=== PATIENT | male | born 1975 | race American Indian/Alaskan Native ===

== ENCOUNTER 2017-06-21 02:25 | Emergency (ER) | payer SELFPAY ==
--- NOTE | 2017-06-21 04:13 | XRay Report ---
FINAL REPORT PROCEDURE: XR HAND 2V LT TECHNIQUE: LEFT hand radiographs, AP, lateral, and oblique views. CPT 32932-IE HISTORY: left hand pain/injury COMPARISON: No prior studies are available for comparison. FINDINGS: Fracture (s) and/or Dislocation(s): None . Alignment: Normal . Joint space(s): Normal . Soft tissues: Normal . Bone mineralization: Normal . Foreign bodies: None . IMPRESSION: Normal Examination .
--- NOTE | 2017-06-21 07:35 | Emergency Department Report ---
Upper Extremity - HPI Chief Complaint: Extremity Injury, Upper Stated Complaint: LEFT HAND PAIN Time Seen by Provider: 06/21/17 07:23 Upper Extremity: Left Hand Occurred When: >5 Days (3 weeks) Mechanism: Hit with Object Severity: moderate Symptoms: Yes Pain with Movement, Yes Swelling, No Deformity, No Limited Range of Movement, No Numbness, No Weakness, No Bruising/Ecchymosis, No Laceration or Abrasion Other History: 42-year-old male past medical history none presents with complaint of 3 weeks of persistent pain and swelling of left palm. Patient is awake alert and oriented 3. Denies fevers chills. States that 3 weeks ago while at work a heavy box hit his right palm. States he had an x-ray done at another medical facility which was negative. States that he has had persistent swelling which may be slightly worse over the last week and pain in his left palm extending to his fingers. Patient denies any other injuries. Patient is able to range fingers without significant difficulty but it is uncomfortable for him. ED Review of Systems ROS: Stated complaint: LEFT HAND PAIN Other details as noted in HPI Constitutional: denies: chills, fever Eyes: denies: eye pain, eye discharge, vision change ENT: denies: ear pain, throat pain Respiratory: denies: cough, shortness of breath, wheezing Cardiovascular: denies: chest pain, palpitations Endocrine: no symptoms reported Gastrointestinal: denies: abdominal pain, nausea, diarrhea Genitourinary: denies: urgency, dysuria Musculoskeletal: as per HPI, arthralgia, other (left palm pain). denies: back pain, joint swelling Skin: denies: rash, lesions Neurological: denies: headache, weakness, paresthesias Psychiatric: denies: anxiety, depression Hematological/Lymphatic: denies: easy bleeding, easy bruising ED Past Medical Hx - Past Medical History Previous Medical History?: No - Surgical History Past Surgical History?: No - Social History Smoking Status: Never Smoker Substance Use Type: None - Medications Home Medications: Home Medications Medication Instructions Recorded Confirmed Last Taken Type Ibuprofen [Motrin 800 MG tab] 800 mg PO TID PRN #30 tablet 07/15/14 Unknown Rx Penicillin Vk [Veetids TAB] 500 mg PO QID #40 tablet 07/15/14 Unknown Rx traMADol [Ultram 50 MG tab] 50 mg PO Q6HR PRN #20 tablet 07/15/14 Unknown Rx Acetaminophen/Codeine [Tylenol 1 tab PO Q6H PRN #4 tab 06/21/17 Unknown Rx /Codeine # 3 tab] Ibuprofen [Motrin] 800 mg PO Q8HR PRN #15 tablet 06/21/17 Unknown Rx Upper Extremity Exam - Exam General: Vital signs noted. No distress. Alert and acting appropriately. Head and Torso: No HEENT Abnormality, No Neck Tenderness, No Chest/Lungs Abnormality, No Abdominal Tenderness, No Back Tenderness Shoulder Exam: Yes Normal Range of Motion in Shoulder, No Shoulder Tenderness, No Clavicle Tenderness, No Shoulder Deformity, No AC Joint Tenderness Arm Exam: No Arm/Humerus Tenderness, No Arm Deformity Elbow: No Elbow Tenderness, No Normal Range of Motion in Elbow, No Elbow Deformity Forearm: No Forearm Tenderness, No Forearm Deformity, No Pain with Pronation, No Pain with Supination Wrist: Yes Normal ROM in Wrist (range of motion left hand and wrist clinically intact on exam), No Wrist Tenderness, No Wrist Deformity, No Snuffbox Tenderness (distal sensation all fingers clinically intact snuffbox tenderness on exam), No Pain with Axial Thumb Compression Hand: Yes Normal ROM in Digit(s) (range of motion all fingers left hand clinically intact), No Hand Tenderness (tenderness mid palm left hand with associated swelling), No Hand Deformity, No Digit Tenderness, No Digit(s) Deformity, No Tendon Dysfunction (flexion and extension of all fingers clinically intact) CMS Exam: Yes Normal Distal Pulses (distal capillary refill intact to all 5 fingers and distal radial brachial and ulnar pulses strong to palpation), Yes Normal Capillary Refill, Yes Normal Distal Sensation, No Broken Skin ED Course Vital Signs 06/21/17 06/21/17 02:43 03:05 Temperature 98.8 F 98.8 F Pulse Rate 99 H 98 H Respiratory 18 17 Rate Blood Pressure 177/100 177/100 O2 Sat by Pulse 96 99 Oximetry ED Medical Decision Making - Lab Data Result diagrams: 06/21/17 07:49 06/21/17 07:49 - Medical Decision Making A/P: Left hand pain, possible inflammatory versus infectious tenosynovitis 1-I discussed with the patient that I am clinically concerned for possible inflammatory versus infectious tenosynovitis and/or tendon injury of his left hand. X-rays unremarkable. Blood work which shows slight hyperglycemia. I informed patient of this. I discussed this case with Dr. Del Castillo my ED attending. 2-I discussed case with on-call orthopedic surgeon Dr. Adamson. As patient does not have leukocytosis or fever and has no visible erythema on clinical exam with good neurovascular exam of left hand and no palpable heat it is extremely unlikely as per Dr. Adamson that this is infectious tenosynovitis of the left hand. More likely inflammatory. As per Dr. Adamson patient can follow-up in clinic this week. I provided him with follow-up information for primary care and orthopedics. I will cover patient empirically with analgesics and antibiotics. Patient provided with a left wrist volar Velcro splint 3-I informed patient that he has slightly elevated blood glucose. Patient does not have significant anion gap. I advised him to remain well-hydrated and follow-up with primary care Critical care attestation.: If time is entered above; I have spent that time in minutes in the direct care of this critically ill patient, excluding procedure time. ED Disposition Clinical Impression: Left hand pain Disposition: TO HOME OR SELFCARE Is pt being admited?: No Does the pt Need Aspirin: No Condition: Stable Instructions: Tenosynovitis (ED), Hyperglycemia, Non-Diabetic (ED) Prescriptions: Acetaminophen/Codeine [Tylenol /Codeine # 3 tab] 1 tab PO Q6H PRN #4 tab PRN Reason: Pain Ibuprofen [Motrin] 800 mg PO Q8HR PRN #15 tablet PRN Reason: Pain Referrals: FRACISCO ADAMSON MD [Staff Physician] - 3-5 Days [facility] [Provider Group] - 3-5 Days Forms: Work/School Release Form(ED) Time of Disposition: 09:18
[2017-06-21 07:59] LABS: Basophils % (Auto) 0.7 % (0.0-1.8); Eosinophils # (Auto) 0.1 K/mm3 (0.0-0.4); Eosinophils % (Auto) 2.2 % (0.0-4.3); Hematocrit 42.6 % (35.5-45.6); Lymphocytes # (Auto) 1.7 K/mm3 (1.2-5.4); Lymphocytes % (Auto) 31.6 % (13.4-35.0); Mean Corpuscular HGB Conc 33 % (32-34); Mean Corpuscular Hemoglobin 29 pg (28-32); Mean Corpuscular Volume 88 fl (84-94); Monocytes # (Auto) 0.4 K/mm3 (0.0-0.8); Monocytes % (Auto) 8.1 % (0.0-7.3); Platelet Count 331 K/mm3 (140-440); Red Blood Count 4.86 M/mm3 (3.65-5.03); Red Cell Distribution Width 13.2 % (13.2-15.2)
[2017-06-21 08:42] LABS: BUN/Creatinine Ratio 17; Blood Urea Nitrogen 12 mg/dL (9-20); Calcium 9.3 mg/dL (8.4-10.2); Hemolysis Index 24
[2017-06-21 09:08] VITALS: BP 140/90
== END 2017-06-21 09:50 | disposition home or self-care (01) ==
LOC: ED 02:25
DX: M79.642 Pain in left hand (principal)
CPT/HCPCS: 36415; 80048; 82550; 85025; 99283

== ENCOUNTER 2017-10-20 00:32 | Emergency (ER) | payer OTHER ==
[2017-10-20] MEDS ORDERED: TORADOL IM ONE (06:39)
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
[2017-10-20 07:53] VITALS: BP 150/90
== END 2017-10-20 07:52 | disposition home or self-care (01) ==
LOC: ED 00:32
DX: S39.012A Strain of muscle, fascia and tendon of lower back, initial encounter (principal); V89.2XXA Person injured in unspecified motor-vehicle accident, traffic, initial encounter; Y93.89 Activity, other specified; Y92.488 Other paved roadways as the place of occurrence of the external cause; Y99.8 Other external cause status
CPT/HCPCS: 96372; 99282; J1885

== ENCOUNTER 2018-10-23 02:08 | Emergency (ER) | payer SELFPAY ==
[2018-10-23 02:28] VITALS: BP 186/108
[2018-10-23] MEDS ORDERED: DECADRON IM ONE (03:09)
[2018-10-23] MEDS ORDERED: TORADOL IM ONE (03:09)
--- NOTE | 2018-10-23 03:18 | Emergency Department Report ---
ED Back Pain/Injury HPI - General Chief Complaint: Back Pain/Injury Stated Complaint: BURNING IN THIGH/BACK PAIN Time Seen by Provider: 10/23/18 03:09 Source: patient Limitations: No Limitations - History of Present Illness Initial Comments: pt is a 43 y/o aam who presents low back pain after lifting boxes at work pt described as 5/10 sharp radiating to right thigh, pain is exacerbated by movement bending and twisting pain is relieved by rest and position there is no numbness no tingling no loss or decrease in bowel or bladder function Complaint: back pain, back injury Onset/Timin -: days(s) Similar Symptoms Previously: Yes Place: work Radiation: right leg Severity scale (0 -10): 5 Quality: burning, sharp Consistency: constant Improves With: other (rest ) Worsens With: movement, sitting upright Context: while lifting, turning/twisting, bending Associated Symptoms: denies: difficulty urinating, incontinence, constipation, abdominal pain - Related Data Previous Rx's Medication Instructions Recorded Last Taken Type Ibuprofen [Motrin 800 MG tab] 800 mg PO TID PRN #30 tablet 07/15/14 Unknown Rx Penicillin Vk [Veetids TAB] 500 mg PO QID #40 tablet 07/15/14 Unknown Rx traMADol [Ultram 50 MG tab] 50 mg PO Q6HR PRN #20 tablet 07/15/14 Unknown Rx Acetaminophen/Codeine [Tylenol 1 tab PO Q6H PRN #4 tab 06/21/17 Unknown Rx /Codeine # 3 tab] Ibuprofen [Motrin] 800 mg PO Q8HR PRN #15 tablet 06/21/17 Unknown Rx Cyclobenzaprine [Flexeril] 10 mg PO BID PRN #20 tablet 10/20/17 Unknown Rx Menthol/Camphor [[place] 18 gm TP TID PRN #1 tube 10/20/17 Unknown Rx Ointment] Naproxen [Naprosyn] 500 mg PO BID PRN #30 tablet 10/20/17 Unknown Rx Cyclobenzaprine [Flexeril] 10 mg PO TID PRN #30 tablet 10/23/18 Unknown Rx Menthol/Camphor [[place] 1 applicatio TP QID PRN #1 tube 10/23/18 Unknown Rx Ointment] Naproxen [Naprosyn TAB] 500 mg PO BID PRN #30 tablet 10/23/18 Unknown Rx Allergies Allergy/AdvReac Type Severity Reaction Status Date / Time No Known Allergies Allergy Verified 10/20/17 01:17 ED Review of Systems ROS: Stated complaint: BURNING IN THIGH/BACK PAIN Other details as noted in HPI Constitutional: denies: chills, fever Eyes: denies: eye pain, eye discharge, vision change ENT: denies: ear pain, throat pain Respiratory: denies: cough, shortness of breath, wheezing Cardiovascular: denies: chest pain, palpitations Endocrine: no symptoms reported Gastrointestinal: denies: abdominal pain, nausea, diarrhea Genitourinary: other. denies: urgency, dysuria, frequency, hematuria Musculoskeletal: back pain. denies: joint swelling, arthralgia Skin: denies: rash, lesions Neurological: denies: headache, weakness, paresthesias, vertigo Psychiatric: denies: anxiety, depression Hematological/Lymphatic: denies: easy bleeding, easy bruising ED Past Medical Hx - Past Medical History Previous Medical History?: Yes Hx Hypertension: Yes (not taking meds) - Surgical History Past Surgical History?: No - Social History Smoking Status: Never Smoker - Medications Home Medications: Home Medications Medication Instructions Recorded Confirmed Last Taken Type Ibuprofen [Motrin 800 MG tab] 800 mg PO TID PRN #30 tablet 07/15/14 Unknown Rx Penicillin Vk [Veetids TAB] 500 mg PO QID #40 tablet 07/15/14 Unknown Rx traMADol [Ultram 50 MG tab] 50 mg PO Q6HR PRN #20 tablet 07/15/14 Unknown Rx Acetaminophen/Codeine [Tylenol 1 tab PO Q6H PRN #4 tab 06/21/17 Unknown Rx /Codeine # 3 tab] Ibuprofen [Motrin] 800 mg PO Q8HR PRN #15 tablet 06/21/17 Unknown Rx Cyclobenzaprine [Flexeril] 10 mg PO BID PRN #20 tablet 10/20/17 Unknown Rx Menthol/Camphor [[place] 18 gm TP TID PRN #1 tube 10/20/17 Unknown Rx Ointment] Naproxen [Naprosyn] 500 mg PO BID PRN #30 tablet 10/20/17 Unknown Rx Cyclobenzaprine [Flexeril] 10 mg PO TID PRN #30 tablet 10/23/18 Unknown Rx Menthol/Camphor [[place] 1 applicatio TP QID PRN #1 tube 10/23/18 Unknown Rx Ointment] Naproxen [Naprosyn TAB] 500 mg PO BID PRN #30 tablet 10/23/18 Unknown Rx ED Physical Exam - General Limitations: No Limitations General appearance: alert, in no apparent distress - Head Head exam: Present: atraumatic, normocephalic - Eye Eye exam: Present: normal appearance, EOMI. Absent: PERRL, conjunctival injection, nystagmus Pupils: Present: normal accommodation - ENT ENT exam: Present: mucous membranes moist - Neck Neck exam: Present: normal inspection, full ROM. Absent: tenderness, meningismus, lymphadenopathy, thyromegaly - Expanded Neck Exam Expanded Neck exam: Absent: tenderness, midline deformity, anterior neck swelling, thyroid mass, carotid bruit, tracheal deviation - Respiratory Respiratory exam: Present: normal lung sounds bilaterally. Absent: respiratory distress, wheezes, stridor, chest wall tenderness - Cardiovascular Cardiovascular Exam: Present: regular rate, normal rhythm, normal heart sounds. Absent: systolic murmur, diastolic murmur, rubs, gallop - GI/Abdominal GI/Abdominal exam: Present: soft, normal bowel sounds. Absent: distended, tenderness, guarding, rebound, rigid, bruit, hernia - Rectal Rectal exam: Present: deferred - Extremities Exam Extremities exam: Present: normal inspection, full ROM, normal capillary refill. Absent: tenderness, pedal edema, joint swelling, calf tenderness - Back Exam Back exam: Present: full ROM, tenderness (right low back muscle pain no posterior vertebral point tenderness mild paraspinus muscle tenderness to deep palpation), muscle spasm, paraspinal tenderness. Absent: CVA tenderness (R), CVA tenderness (L), vertebral tenderness, rash noted - Expanded Back Exam Expanded Back exam: Absent: saddle anesthesia Back exam: Positive Straight Leg Raise: Right, Negative Straight Leg Raising: Left - Neurological Exam Neurological exam: Present: alert, oriented X3, CN II-XII intact, normal gait, reflexes normal. Absent: motor sensory deficit - Expanded Neurological Exam Expanded Patient oriented to: Present: person, place, time Speech: Present: fluid speech Cranial nerves: EOM's Intact: Normal, Gag Reflex: Normal, Tongue Deviation: Normal, Nystagmus: Normal, Facial Sensation: Normal Cerebellar function: Finger to Nose: Normal, Heel to Thao: Normal, Romberg: Normal Upper motor neuron: Bronson Neglect: Normal, Pronator Drift: Normal, Babinski Sign: Normal, Sensory Extinction: Normal Sensory exam: Upper Extremity Light Touch: Normal, Upper Extremity Pin Prick: Normal, Upper Extremity Temperature: Normal, UE 2 Point Discrimination: Normal, Lower Extremity Light Touch: Normal, Lower Extremity Pin Prick: Normal, Lower Extremity Temperature: Normal, LE 2 Point Discrimination: Normal Motor strength exam: RUE: 5, LUE: 5, RLE: 5, LLE: 5 DTR: knee (R): 0, knee (L): 0, ankle (R): 0, ankle (L): 0 Best Eye Response ([place]): (4) open spontaneously Best Motor Response ([place]): (6) obeys commands Best Verbal Response ([place]): (5) oriented Alexia Total: 15 - Psychiatric Psychiatric exam: Present: normal affect, normal mood - Skin Skin exam: Present: warm, dry, intact, normal color. Absent: rash ED Course Vital Signs 10/23/18 02:18 Temperature 98.3 F Pulse Rate 99 H Respiratory 18 Rate Blood Pressure 186/108 O2 Sat by Pulse 99 Oximetry ED Medical Decision Making - Medical Decision Making pain improved this is a low back strain plan, nsaids, muscle relaxants, analgesic moist heat therapy. follow up with pcp in 2-3 days. pt verbalized agreement and understanding of same. Critical care attestation.: If time is entered above; I have spent that time in minutes in the direct care of this critically ill patient, excluding procedure time. ED Disposition Clinical Impression: Low back strain Qualifiers: Encounter type: initial encounter Qualified Code(s): S39.012A - Strain of muscle, fascia and tendon of lower back, initial encounter Disposition: TO HOME OR SELFCARE Is pt being admited?: No Does the pt Need Aspirin: No Condition: Stable Instructions: Low Back Strain (ED), Core Strengthening Exercises (GEN) Prescriptions: Cyclobenzaprine [Flexeril] 10 mg PO TID PRN #30 tablet PRN Reason: Muscle Spasm Naproxen [Naprosyn TAB] 500 mg PO BID PRN #30 tablet PRN Reason: pain Menthol/Camphor [[place] Ointment] 1 applicatio TP QID PRN #1 tube PRN Reason: pain Referrals: FRACISCO GARZA MD [Staff Physician] - 3-5 Days [facility] [Outside] - 3-5 Days Forms: Work/School Release Form(ED) Time of Disposition: 03:29
== END 2018-10-23 03:48 | disposition home or self-care (01) ==
LOC: ED 02:08
DX: S39.012A Strain of muscle, fascia and tendon of lower back, initial encounter (principal); I10 Essential (primary) hypertension; Z79.899 Other long term (current) drug therapy; X50.0XXA Overexertion from strenuous movement or load, initial encounter; Y93.89 Activity, other specified; Y92.89 Other specified places as the place of occurrence of the external cause; Y99.8 Other external cause status
CPT/HCPCS: 96372; 99282; J1100; J1885

== ENCOUNTER 2019-02-26 08:28 | Emergency (ER) | payer SELFPAY ==
[2019-02-26 13:58] LABS: Basophils % (Auto) 0.4 % (0.0-1.8); Eosinophils # (Auto) 0.2 K/mm3 (0.0-0.4); Eosinophils % (Auto) 3.2 % (0.0-4.3); Hematocrit 34.3 % (35.5-45.6); Hemoglobin 11.6 gm/dl (11.8-15.2); Lymphocytes # (Auto) 1.7 K/mm3 (1.2-5.4); Lymphocytes % (Auto) 28.6 % (13.4-35.0); Mean Corpuscular HGB Conc 34 % (32-34); Mean Corpuscular Volume 87 fl (84-94); Monocytes # (Auto) 0.4 K/mm3 (0.0-0.8); Monocytes % (Auto) 6.7 % (0.0-7.3); Platelet Count 360 K/mm3 (140-440); Red Blood Count 3.96 M/mm3 (3.65-5.03); Red Cell Distribution Width 13.9 % (13.2-15.2)
[2019-02-26] MEDS ORDERED: SODIUM CHLORIDE 0.9% 1000 ML 1,000 ML IV ONE (13:58)
[2019-02-26] MEDS ORDERED: MORPHINE 4 MG/1 ML INJ IV ONE (13:58)
[2019-02-26 14:20] LABS: BUN/Creatinine Ratio 18; Blood Urea Nitrogen 21 mg/dL (9-20); Calcium 9.3 mg/dL (8.4-10.2); Hemolysis Index 7
--- NOTE | 2019-02-26 14:50 | Cat Scan Report ---
CT CERVICAL SPINE INDICATION: lower back pain s/p fall. TECHNIQUE: Axial CT images of the cervical spine were obtained. Sagittal and coronal reformatted images were pr oduced. All CT scans at this location are performed using CT dose reduction for ALARA by means of aut omated exposure control. COMPARISON: None available. FINDINGS: ALIGNMENT: There is slight curvature of the lumbar spine, convex toward the left. There is no signifi cant spondylolisthesis. VERTEBRAE: There are multilevel focal endplate changes involving the anterior lumbar vertebral bodies at. However, there is no CT evidence of acute compression or fracture.. INTRAVERTEBRAL DISCS: The disc bulge at L4-5 appears to slightly flatten the ventral thecal sac at. T here is no significant neural foraminal narrowing at. The disc bulge L3-4 also slightly flattens the ventral thecal sac without foraminal narrowing at. The remaining lumbar disc spaces are fairly well-maintained without CT evidence of significant bony o f spinal stenosis. There are mild facet joint changes at L5-S1 and on the right at L4-5 without signi ficant stenosis. PARASPINAL SOFT TISSUES: No significant abnormality. ADDITIONAL FINDINGS: None. IMPRESSION: 1. There is no CT evidence of acute compression or fracture involving the lumbar spine. Signer Name: Yovanny Garg MD Signed: 02/26/2019 2:46 PM Workstation Name: [id number]
--- NOTE | 2019-02-26 14:59 | Emergency Department Report ---
ED Fall HPI - General Chief Complaint: Fall Stated Complaint: FALL INJURY/LEG PAIN EXTREME Time Seen by Provider: 02/26/19 12:29 Source: patient Mode of arrival: Ambulatory - History of Present Illness Initial Comments: This is a 43-year-old male nontoxic, well nourished in appearance, no acute signs of distress presents to the ED with c/o of acute lower back pain, left hip pain, and bilateral feet pains status post fall that occurred today. Patient stated he had a trip and fall while walking 5 steps of stairs. Patient denies any neck pain or headache. Denies any other trauma or injuries. Patient denies any radiation of pain. Patient denies any other trauma. Denies any bladder or bowel instability. Patient denies any urinary symptoms. Denies any fever, chills, nausea, vomiting, headache, stiff neck, chest pain or shortness of breath. Patient denies any numbness or tingling. Denies any allergies. Past medical history includes hypertension and diabetes and stated he does take medications for these. 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 denies: headache, neck pain, numbness, weakness, chest paint, shortness of breath, abdominal pain, hematuria, unable to walk, lightheaded, vertigo, confusion - Related Data Previous Rx's Medication Instructions Recorded Last Taken Type Ibuprofen [Motrin 800 MG tab] 800 mg PO TID PRN #30 tablet 07/15/14 Unknown Rx Penicillin Vk [Veetids TAB] 500 mg PO QID #40 tablet 07/15/14 Unknown Rx traMADoL [Ultram 50 MG tab] 50 mg PO Q6HR PRN #20 tablet 07/15/14 Unknown Rx Acetaminophen/Codeine [Tylenol 1 tab PO Q6H PRN #4 tab 06/21/17 Unknown Rx /Codeine # 3 tab] Ibuprofen [Motrin] 800 mg PO Q8HR PRN #15 tablet 06/21/17 Unknown Rx Cyclobenzaprine [Flexeril] 10 mg PO BID PRN #20 tablet 10/20/17 Unknown Rx Menthol/Camphor [Linden Clayton 18 gm TP TID PRN #1 tube 10/20/17 Unknown Rx Ointment] Naproxen [Naprosyn] 500 mg PO BID PRN #30 tablet 10/20/17 Unknown Rx Cyclobenzaprine [Flexeril] 10 mg PO TID PRN #30 tablet 10/23/18 Unknown Rx Menthol/Camphor [Linden Clayton 1 applicatio TP QID PRN #1 tube 10/23/18 Unknown Rx Ointment] Naproxen [Naprosyn TAB] 500 mg PO BID PRN #30 tablet 10/23/18 Unknown Rx Cyclobenzaprine [Flexeril] 10 mg PO QHS PRN #10 tablet 02/26/19 Unknown Rx Naproxen 500 mg PO Q12H PRN #20 tablet 02/26/19 Unknown Rx Allergies Allergy/AdvReac Type Severity Reaction Status Date / Time No Known Allergies Allergy Verified 10/20/17 01:17 ED Review of Systems ROS: Stated complaint: FALL INJURY/LEG PAIN EXTREME Other details as noted in HPI Constitutional: denies: chills, fever Eyes: denies: eye pain, eye discharge, vision change ENT: denies: ear pain, throat pain Respiratory: denies: cough, shortness of breath, wheezing Cardiovascular: denies: chest pain, palpitations Endocrine: no symptoms reported Gastrointestinal: denies: abdominal pain, nausea, diarrhea Genitourinary: denies: urgency, dysuria Musculoskeletal: back pain, arthralgia. denies: joint swelling Skin: denies: rash, lesions Neurological: denies: headache, weakness, paresthesias Psychiatric: denies: anxiety, depression Hematological/Lymphatic: denies: easy bleeding, easy bruising ED Past Medical Hx - Past Medical History Previous Medical History?: Yes Hx Hypertension: Yes (not taking meds) Hx Diabetes: Yes (states diet managed) - Surgical History Past Surgical History?: Yes - Social History Smoking Status: Never Smoker Substance Use Type: None - Medications Home Medications: Home Medications Medication Instructions Recorded Confirmed Last Taken Type Ibuprofen [Motrin 800 MG tab] 800 mg PO TID PRN #30 tablet 07/15/14 Unknown Rx Penicillin Vk [Veetids TAB] 500 mg PO QID #40 tablet 07/15/14 Unknown Rx traMADoL [Ultram 50 MG tab] 50 mg PO Q6HR PRN #20 tablet 07/15/14 Unknown Rx Acetaminophen/Codeine [Tylenol 1 tab PO Q6H PRN #4 tab 06/21/17 Unknown Rx /Codeine # 3 tab] Ibuprofen [Motrin] 800 mg PO Q8HR PRN #15 tablet 06/21/17 Unknown Rx Cyclobenzaprine [Flexeril] 10 mg PO BID PRN #20 tablet 10/20/17 Unknown Rx Menthol/Camphor [Linden Clayton 18 gm TP TID PRN #1 tube 10/20/17 Unknown Rx Ointment] Naproxen [Naprosyn] 500 mg PO BID PRN #30 tablet 10/20/17 Unknown Rx Cyclobenzaprine [Flexeril] 10 mg PO TID PRN #30 tablet 10/23/18 Unknown Rx Menthol/Camphor [Linden Clayton 1 applicatio TP QID PRN #1 tube 10/23/18 Unknown Rx Ointment] Naproxen [Naprosyn TAB] 500 mg PO BID PRN #30 tablet 10/23/18 Unknown Rx Cyclobenzaprine [Flexeril] 10 mg PO QHS PRN #10 tablet 02/26/19 Unknown Rx Naproxen 500 mg PO Q12H PRN #20 tablet 02/26/19 Unknown Rx ED Physical Exam - General Limitations: No Limitations General appearance: alert, in no apparent distress - Head Head exam: Present: atraumatic, normocephalic - Eye Eye exam: Present: normal appearance, PERRL, EOMI - Neck Neck exam: Present: normal inspection, full ROM. Absent: tenderness, meningismus, lymphadenopathy - Respiratory Respiratory exam: Present: normal lung sounds bilaterally. Absent: respiratory distress, wheezes, rales, rhonchi, stridor, chest wall tenderness, accessory muscle use, decreased breath sounds, prolonged expiratory - Cardiovascular Cardiovascular Exam: Present: regular rate, normal rhythm, tachycardia, normal heart sounds. Absent: irregular rhythm - GI/Abdominal GI/Abdominal exam: Present: soft, normal bowel sounds. Absent: distended, tenderness, guarding, rebound, rigid, diminished bowel sounds - Extremities Exam Extremities exam: Present: normal inspection, full ROM, tenderness, normal capillary refill. Absent: joint swelling, calf tenderness - Expanded Lower Extremity Exam Left Hip exam: Present: normal inspection, full ROM, tenderness, external rotation, internal rotation, pelvic stability. Absent: swelling, abrasion, laceration, ecchymosis, deformity, crepidus, dislocation, erythema, shortening Upper Leg exam: Present: normal inspection, full ROM. Absent: tenderness, swelling Knee exam: Present: normal inspection, full ROM. Absent: tenderness, swelling Lower Leg exam: Present: normal inspection, full ROM. Absent: tenderness, swelling, laceration, ecchymosis, deformity, crepidus, dislocation, erythema, palpable cord, Burak's sign Ankle exam: Present: normal inspection, full ROM. Absent: tenderness, swelling Foot/Toe exam: Present: normal inspection, full ROM, tenderness. Absent: swelling, abrasion, laceration, ecchymosis, deformity, crepidus, dislocation, erythema, amputation, puncture wound, foreign body, calcaneal tenderness, tenderness at base of 5th metatarsal, nail avulsion, subungual hematoma Neuro vascular tendon exam: Present: no vascular compromise Gait: Positive: observed and limited by pain - Back Exam Back exam: Present: normal inspection, full ROM, paraspinal tenderness (left sided lumbar paraspinal). Absent: tenderness, CVA tenderness (R), CVA tenderness (L), muscle spasm, vertebral tenderness, rash noted - Expanded Back Exam Expanded Back exam: Absent: saddle anesthesia Back exam: Negative Straight Leg Raising: Left, Right - Neurological Exam Neurological exam: Present: alert, oriented X3, normal gait - Psychiatric Psychiatric exam: Present: normal affect, normal mood - Skin Skin exam: Present: warm, dry, intact, normal color. Absent: rash ED Course Vital Signs 02/26/19 02/26/19 02/26/19 08:52 13:01 13:39 Temperature 99.2 F 98.3 F Pulse Rate 122 H 117 H Respiratory 16 18 Rate Blood Pressure 193/117 Blood Pressure 143/93 [Left] O2 Sat by Pulse 99 98 Oximetry 02/26/19 16:03 Temperature 98.7 F Pulse Rate 92 H Respiratory 18 Rate Blood Pressure Blood Pressure 157/89 [Left] O2 Sat by Pulse 100 Oximetry - Reevaluation(s) Reevaluation #1: 02/26/19 15:01 Patient is speaking in full sentences with no signs of distress noted. ED Medical Decision Making - Lab Data Result diagrams: 02/26/19 13:41 02/26/19 13:41 - EKG Data Interpretation: other (sinus tachycardia with LVH and left arterial enlargement. No STEMI.) - Medical Decision Making 43-year-old male that presents with fall. Patient is stable and was examined by me. CT and x-rays has been obtained and dictated by radiologist with no acute changes. Patient is notified of the results with no questions noted by the patient. EKG obtained. Labs are unremarkable. Negative troponin. Patient received 1 L normal saline and morphine and heart rate has decreased prior to discharge. Vital signs are stable prior to discharge. Patient stated family member will drive patient home after discharge due to possible drowsiness. Patient is discharged with Tylenol with codeine. Patient was instructed to Follow-up with a primary care doctor in 3-5 days or if symptoms worsen and continue return to emergency room as soon as possible. At time of discharge, th e patient does not seem toxic or ill in appearance. No acute signs of distress noted. Patient agrees to discharge treatment plan of care. No further questions noted by the patient. Critical care attestation.: If time is entered above; I have spent that time in minutes in the direct care of this critically ill patient, excluding procedure time. ED Disposition Clinical Impression: Tachycardia Fall Qualifiers: Encounter type: initial encounter Qualified Code(s): W19.XXXA - Unspecified fall, initial encounter Low back strain Qualifiers: Encounter type: initial encounter Qualified Code(s): S39.012A - Strain of muscle, fascia and tendon of lower back, initial encounter Right foot strain Qualifiers: Encounter type: initial encounter Qualified Code(s): S96.911A - Strain of unspecified muscle and tendon at ankle and foot level, right foot, initial encounter Strain of left hip Qualifiers: Encounter type: initial encounter Qualified Code(s): S76.012A - Strain of muscle, fascia and tendon of left hip, initial encounter Disposition: TO HOME OR SELFCARE Is pt being admited?: No Does the pt Need Aspirin: No Condition: Stable Instructions: Muscle Strain (ED), Cyclobenzaprine (By mouth) Additional Instructions: Follow-up with your primary care doctor in 3-5 days or if symptoms worsen such as bladder or bowel stability, chest pain, short of breath, numbness or tingling sensation in extremities, headache, dizziness, visual changes, nausea vomiting, or abdominal pain, return back to emergency room as was possible. Take ibuprofen and Flexeril as prescribed. Do not operate heavy machinery while taking Flexeril due to sedation Prescriptions: Cyclobenzaprine [Flexeril] 10 mg PO QHS PRN #10 tablet PRN Reason: Muscle Spasm Naproxen 500 mg PO Q12H PRN #20 tablet PRN Reason: Pain, Moderate (4-6) Referrals: PRIMARY CAREMD [Primary Care Provider] - 3-5 Days ROSENDO SANDERSON MD [Staff Physician] - 3-[address] [facility] [Outside] - 3-[address] [facility] [Outside] - 3-5 Days Forms: Work/School Release Form(ED)
--- NOTE | 2019-02-26 15:04 | XRay Report ---
CHEST 2 VIEWS INDICATION: tachycardia. COMPARISON: None FINDINGS: Support devices: None. Heart: Within normal limits. Lungs/pleura: No acute air space or interstitial disease. No pneumothorax. Additional findings: None. IMPRESSION: 1. No acute findings. Signer Name: Rebel Garcia MD Signed: 02/26/2019 3:00 PM Workstation Name: [id number]
--- NOTE | 2019-02-26 15:05 | XRay Report ---
Left hip-2 views INDICATION: pain s/p fall. COMPARISON: None. IMPRESSION: No acute osseous or soft tissue abnormality. 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 A metallic pin (l shruthi a safety pin) projects over the mid deep pelvis. Correlate to ensure this is on the patient's ski n surface. Signer Name: Rebel Garcia MD Signed: 02/26/2019 3:00 PM Workstation Name: [id number]
--- NOTE | 2019-02-26 15:06 | XRay Report ---
Bilateral feet-6 views INDICATION: fall with pain. COMPARISON: None. IMPRESSION: No acute osseous or soft tissue abnormality. No significant DJD. Signer Name: Rebel Garcia MD Signed: 02/26/2019 3:01 PM Workstation Name: [id number]
[2019-02-26 16:03] VITALS: BP 157/89
[2019-02-26 16:17] LABS: Bacteria,Urine 1+ /HPF (Negative); Bilirubin,Urine NEG (Negative); Blood,Urine SM (Negative); Color,Urine Yellow (Yellow); Hyaline Casts,Urine 5 /LPF; Mucus,Urine FEW /HPF; Sperm,Urine FEW /HPF (NP); Urobilinogen,Urine < 2.0 mg/dL (<2.0)
== END 2019-02-26 16:47 | disposition home or self-care (01) ==
LOC: ED 08:28
DX: S39.012A Strain of muscle, fascia and tendon of lower back, initial encounter (principal); S96.911A Strain of unspecified muscle and tendon at ankle and foot level, right foot, initial encounter; S76.012A Strain of muscle, fascia and tendon of left hip, initial encounter; R00.0 Tachycardia, unspecified; I10 Essential (primary) hypertension; E11.9 Type 2 diabetes mellitus without complications; Z79.899 Other long term (current) drug therapy; W01.0XXA Fall on same level from slipping, tripping and stumbling without subsequent striking against object, initial encounter; Y93.01 Activity, walking, marching and hiking; Y92.89 Other specified places as the place of occurrence of the external cause; Y99.8 Other external cause status
CPT/HCPCS: 36415; 71046; 72131; 73502; 73630; 80048; 81001; 84484; 85025; 87086; 93005; 93010; 96374; 99285; J2270; J7030